=== PATIENT | male | born 1955 | race African-American/Black ===

== ENCOUNTER 2023-10-15 03:48 | Inpatient (IN) | payer OTHER ==
[2023-10-15] MEDS ORDERED: HYDROcodone/Acetaminophen 5/325 mg Tablet ONE (04:17)
[2023-10-15] MEDS ORDERED: Ketorolac Tromethamine 30 MG (1 mL) VIAL ONE (04:17)
[2023-10-15 04:35] LABS: #Basophils 0.02 10x3/uL (0.0-0.2); #Monocytes 1.45 10x3/uL (0.0-1.1); #Neutrophils 16.48 10x3/uL (1.5-8.4); %Basophils 0.1 % (0.0-2.0); %Monocytes 7.6 % (0.0-10.0); Hematocrit 26.7 % (38.8-50.0); Hemoglobin 8.4 g/dL (13.5-17.5); Mean Corpuscular HGB CONC 31.5 g/dL (32.0-36.0); Mean Corpuscular Hemoglobin 22.7 pg (27.0-33.0); Mean Corpuscular Volume 72.2 fL (81.2-95.1); Platelet Count 205 10x3/uL (150-450); RBC Distribution Width 16.6 % (11.5-14.5); White Blood Cell (WBC) Count 19.2 10x3/uL (3.5-10.5)
[2023-10-15 04:40] LABS: INR-International Normal Ratio 1.2; PTT 31.6 sec (22.0-33.0); Prothrombin Time 12.6 sec (9.5-12.1)
[2023-10-15 04:46] LABS: ALT (SGPT) 39 U/L (8-55); AST (SGOT) 71 U/L (5-34); Albumin 2.5 g/dL (3.4-4.8); Alkaline Phosphatase 112 U/L (40-110); Anion Gap 16 mmol/L (10-20); BUN (Urea Nitrogen) 24 mg/dL (8.4-25.7); Bilirubin, Total 0.8 mg/dL (0.2-1.2); Calc. Creatinine Clearance 0 mL/min (70-130); Calcium 8.5 mg/dL (7.8-10.44); Carbon Dioxide 21 mmol/L (23-31); Chloride 102 mmol/L (98-107); Estimated GFR 64; Glucose 122 mg/dL (80-115); Potassium 3.2 mmol/L (3.5-5.1); Protein, Total 6.5 g/dL (5.8-8.1); Sodium 136 mmol/L (136-145)
[2023-10-15] MEDS ORDERED: cefTRIAXone (ROCEPHIN) 1 GM VIAL ONE (04:59)
[2023-10-15 05:24] LABS: Hypochromia SLIGHT = 6-15 cells (100X) (0-5/hpf); Microcytosis SLIGHT = 6-15 cells (100X) (0-5/hpf)
[2023-10-15 05:25] LABS: Burr Cells SLIGHT = 2-5 cells (100X) (0-1/hpf); Platelet Adequacy Comment Appears Adequate
[2023-10-15] MEDS ORDERED: Dextrose 5% in Water 1,000 ML IV PRN (08:51)
[2023-10-15] MEDS ORDERED: Dextrose 50% Abboject 50 ML SYRINGE SLOW IVP PRN (08:51)
[2023-10-15] MEDS ORDERED: Glucagon 1 MG/ML KIT IM PRN (08:51)
[2023-10-15] MEDS ORDERED: Ondansetron PF 4 MG/2 ML Vial IVP PRN (08:56)
[2023-10-15] MEDS ORDERED: Senokot S 8.6-50 MG TAB PO PRN (08:56)
[2023-10-15] MEDS ORDERED: Calcium Carbonate 500 MG ChewTAB PO PRN (08:56)
[2023-10-15] MEDS ORDERED: Ondansetron ODT 4 MG TAB PO PRN (08:56)
[2023-10-15] MEDS ORDERED: Acetaminophen 650 MG Suppository PR PRN (08:56)
[2023-10-15] MEDS: Empagliflozin 10 MG TAB PO SCH (11:34)
[2023-10-15] MEDS: Clopidogrel Bisulfate 75 MG TAB PO SCH (11:34)
[2023-10-15 11:40] VITALS: BMI 27.2
[2023-10-15] MEDS: Famotidine 20 MG TAB PO SCH (11:53)
[2023-10-15] MEDS: VANCOMYCIN 2 GRAM/400 ML BAG 2 GM in Premix 1 BAG IVPB SCH (11:54)
[2023-10-15] MEDS: Potassium Chloride 20 MEQ TAB PO SCH (11:54)
[2023-10-15] MEDS ORDERED: Iopamidol 370 76% 100 ML VIAL ONE (13:07)
[2023-10-15] MEDS: Insulin Lispro 100 UNIT/ML 10 ML VIAL SC PRN (13:46)
[2023-10-15] MEDS: Atorvastatin Calcium 40 MG TAB PO SCH (22:35)
[2023-10-15] MEDS: Vancomycin 1 GM in Sodium Chloride 0.9% 250 ML 300 ML IVPB SCH (22:36)
[2023-10-15] MEDS: Rivaroxaban 15 MG TAB PO SCH (22:36)
[2023-10-15] MEDS: Terazosin HCl 5 MG CAP PO SCH (22:36)
[2023-10-15] MEDS: Lactulose 20 GM (30 mL) UDCUP PO SCH (22:37)
[2023-10-15] MEDS: Vancomycin 1 GM VIAL ONE (22:40)
[2023-10-15] MEDS: Venlafaxine HCl XR 75 MG CAP PO SCH (22:59)
[2023-10-16] MEDS: Morphine 2 MG/ML VIAL SLOW IVP PRN (02:14)
[2023-10-16] MEDS: Insulin Lispro 100 UNIT/ML 10 ML VIAL SC PRN (02:28)
[2023-10-16 04:22] LABS: MDiff Complete? YES
[2023-10-16 04:40] LABS: ALT (SGPT) 34 U/L (8-55); AST (SGOT) 43 U/L (5-34); Albumin 2.1 g/dL (3.4-4.8); Alkaline Phosphatase 132 U/L (40-110); Anion Gap 17 mmol/L (10-20); BUN (Urea Nitrogen) 29 mg/dL (8.4-25.7); Bilirubin, Total 0.5 mg/dL (0.2-1.2); Calc. Creatinine Clearance 74 mL/min (70-130); Calcium 8.6 mg/dL (7.8-10.44); Carbon Dioxide 20 mmol/L (23-31); Chloride 104 mmol/L (98-107); Estimated GFR 54; Globulin 4.2 g/dL (2.4-3.5); Glucose 242 mg/dL (80-115); Potassium 3.2 mmol/L (3.5-5.1); Protein, Total 6.3 g/dL (5.8-8.1); Sodium 138 mmol/L (136-145); Vancomycin, Random 21.2 ug/mL (See Comment)
[2023-10-16 04:41] LABS: Hematocrit 28.2 % (38.8-50.0); Hemoglobin 8.8 g/dL (13.5-17.5); Mean Corpuscular HGB CONC 31.2 g/dL (32.0-36.0); Mean Corpuscular Hemoglobin 22.9 pg (27.0-33.0); Mean Corpuscular Volume 73.2 fL (81.2-95.1); Mean Platelet Volume 11.2 fL (7.4-10.4); Platelet Count 263 10x3/uL (150-450); RBC Distribution Width 16.9 % (11.5-14.5); Red Blood Cell (RBC) Count 3.85 10x6/uL (4.32-5.72); White Blood Cell (WBC) Count 20.4 10x3/uL (3.5-10.5)
[2023-10-16 04:49] LABS: Band 7 % (5-11); Lymphocytes 5 % (21-51); Monocytes 4 % (0-10); Neutrophil 84 % (42-75)
[2023-10-16 04:59] LABS: Burr Cells SLIGHT = 2-5 cells (100X) (0-1/hpf); Microcytosis SLIGHT = 6-15 cells (100X) (0-5/hpf); Ovalocytes SLIGHT = 2-5 cells (100X) (0-1/hpf)
[2023-10-16 05:00] LABS: Platelet Adequacy Comment Appears Adequate
[2023-10-16] MEDS: Venlafaxine HCl XR 150 MG CAP PO SCH (08:14)
[2023-10-16] MEDS: cefTRIAXone\\ROCEPHIN 1 GM in Sodium Chloride 0.9% 100 ML IVPB SCH (08:44)
[2023-10-16] MEDS: Amlodipine 10 MG TAB PO SCH (08:47)
[2023-10-16] MEDS: Aspirin 81 mg Enteric Coated Tablet PO SCH (08:47)
[2023-10-16] MEDS: Clopidogrel Bisulfate 75 MG TAB PO SCH (08:47)
[2023-10-16] MEDS: Potassium Chloride 20 MEQ TAB PO SCH (08:52)
[2023-10-16] MEDS ORDERED: Vancomycin 1 GM in Sodium Chloride 0.9% 250 ML 250 ML IVPB SCH (09:00)
[2023-10-16] MEDS ORDERED: Lisinopril 5 MG TAB PO SCH (09:00)
[2023-10-16] MEDS: HYDROcodone/Acetaminophen 5/325 mg Tablet PO PRN (11:11)
[2023-10-16] MEDS: VANCOMYCIN 1.25 GM/250 ML BAG 1.25 GM in Premix 1 BAG IVPB SCH (11:12)
[2023-10-16] MEDS: Venlafaxine HCl XR 75 MG CAP PO SCH (21:31)
[2023-10-16] MEDS: Insulin NPH Human Isophane 100 UNITS/ML (10 ML VIAL) SC SCH (21:40)
[2023-10-17 03:59] LABS: #Basophils 0.05 10x3/uL (0.0-0.2); #Eosinphils 0.09 10x3/uL (0.0-0.5); #Monocytes 1.31 10x3/uL (0.0-1.1); #Neutrophils 18.42 10x3/uL (1.5-8.4); %Basophils 0.2 % (0.0-2.0); %Eosinophils 0.4 % (0.0-6.0); %Lymphocytes 6.4 % (18.0-47.0); %Neutrophils 84.9 % (40.0-75.0); Hematocrit 27.9 % (38.8-50.0); Hemoglobin 8.9 g/dL (13.5-17.5); Mean Corpuscular HGB CONC 31.9 g/dL (32.0-36.0); Mean Corpuscular Hemoglobin 23.1 pg (27.0-33.0); Mean Corpuscular Volume 72.5 fL (81.2-95.1); Mean Platelet Volume 10.3 fL (7.4-10.4); Platelet Count 308 10x3/uL (150-450); RBC Distribution Width 17.2 % (11.5-14.5); Red Blood Cell (RBC) Count 3.85 10x6/uL (4.32-5.72); White Blood Cell (WBC) Count 21.7 10x3/uL (3.5-10.5)
[2023-10-17 04:01] LABS: Vancomycin, Random 16.3 ug/mL (See Comment)
[2023-10-17 04:08] LABS: Anion Gap 13 mmol/L (10-20); BUN (Urea Nitrogen) 25 mg/dL (8.4-25.7); Calc. Creatinine Clearance 87 mL/min (70-130); Calcium 8.5 mg/dL (7.8-10.44); Carbon Dioxide 23 mmol/L (23-31); Chloride 104 mmol/L (98-107); Estimated GFR 65; Glucose 194 mg/dL (80-115); Potassium 3.3 mmol/L (3.5-5.1); Sodium 137 mmol/L (136-145)
[2023-10-17] MEDS ORDERED: Electrolyte Replacement Protocol 1 EACH FS SCH (08:15)
[2023-10-17] MEDS ORDERED: Iopamidol 370 76% 100 ML VIAL ONE (09:50)
[2023-10-17] MEDS: Cefepime 1 GM in Sodium Chloride 0.9% 100 ML IVPB SCH (10:40)
[2023-10-17] MEDS: Potassium Chloride 20 MEQ TAB PO SCH (10:41)
[2023-10-17] MEDS: Vancomycin 1.5 GRAM/300 ML BAG 1.5 GM in Premix 1 BAG IVPB SCH (11:29)
[2023-10-17 14:34] LABS: Potassium 3.9 mmol/L (3.5-5.1)
[2023-10-18 04:00] LABS: Hematocrit 27.8 % (38.8-50.0); Hemoglobin 8.9 g/dL (13.5-17.5); MDiff Complete? YES; Mean Corpuscular Volume 71.8 fL (81.2-95.1); Mean Platelet Volume 10.4 fL (7.4-10.4); Platelet Count 394 10x3/uL (150-450); RBC Distribution Width 17.3 % (11.5-14.5); Red Blood Cell (RBC) Count 3.87 10x6/uL (4.32-5.72); White Blood Cell (WBC) Count 25.3 10x3/uL (3.5-10.5)
[2023-10-18 04:23] LABS: Anion Gap 16 mmol/L (10-20); BUN (Urea Nitrogen) 24 mg/dL (8.4-25.7); Calc. Creatinine Clearance 86 mL/min (70-130); Calcium 8.4 mg/dL (7.8-10.44); Carbon Dioxide 21 mmol/L (23-31); Chloride 106 mmol/L (98-107); Estimated GFR 64; Glucose 203 mg/dL (80-115); Magnesium 2.5 mg/dL (1.6-2.6); Potassium 4.5 mmol/L (3.5-5.1); Sodium 138 mmol/L (136-145)
[2023-10-18 04:55] LABS: Band 4 % (5-11); Eosinophils 1 % (0-10); Lymphocytes 3 % (21-51); Monocytes 3 % (0-10); Neutrophil 89 % (42-75)
[2023-10-18 04:59] LABS: Microcytosis SLIGHT = 6-15 cells (100X) (0-5/hpf); Ovalocytes SLIGHT = 2-5 cells (100X) (0-1/hpf); Platelet Adequacy Comment Appears Adequate
[2023-10-18] MEDS: VANCOMYCIN 1.25 GM/250 ML BAG 1.25 GM in Premix 1 BAG IVPB SCH (07:37)
[2023-10-18] MEDS: Insulin NPH Human Isophane 100 UNITS/ML (10 ML VIAL) SC SCH (09:25)
[2023-10-19] MEDS: Acetaminophen 325 MG TAB PO PRN (04:09)
[2023-10-19 04:26] LABS: Vancomycin, Random 38.3 ug/mL (See Comment)
[2023-10-19 04:27] LABS: Anion Gap 14 mmol/L (10-20); BUN (Urea Nitrogen) 20 mg/dL (8.4-25.7); Calc. Creatinine Clearance 92 mL/min (70-130); Carbon Dioxide 22 mmol/L (23-31); Chloride 107 mmol/L (98-107); Estimated GFR 69; Glucose 170 mg/dL (80-115); Potassium 3.7 mmol/L (3.5-5.1); Sodium 139 mmol/L (136-145)
[2023-10-19 05:03] LABS: Hematocrit 26.6 % (38.8-50.0); Hemoglobin 8.4 g/dL (13.5-17.5); Mean Corpuscular HGB CONC 31.6 g/dL (32.0-36.0); Mean Corpuscular Hemoglobin 22.8 pg (27.0-33.0); Mean Corpuscular Volume 72.3 fL (81.2-95.1); Mean Platelet Volume 9.7 fL (7.4-10.4); Platelet Count 445 10x3/uL (150-450); RBC Distribution Width 17.2 % (11.5-14.5); Red Blood Cell (RBC) Count 3.68 10x6/uL (4.32-5.72); White Blood Cell (WBC) Count 26.4 10x3/uL (3.5-10.5)
[2023-10-19 05:04] LABS: MDiff Complete? YES
[2023-10-19 05:45] LABS: Band 5 % (5-11); Eosinophils 1 % (0-10); Lymphocytes 5 % (21-51); Monocytes 4 % (0-10); Neutrophil 85 % (42-75)
[2023-10-19 05:49] LABS: Hypochromia SLIGHT = 6-15 cells (100X) (0-5/hpf); Microcytosis SLIGHT = 6-15 cells (100X) (0-5/hpf); Ovalocytes SLIGHT = 2-5 cells (100X) (0-1/hpf)
[2023-10-19 05:50] LABS: Platelet Adequacy Comment Appears Adequate
[2023-10-19 11:23] VITALS: BMI 27.2
[2023-10-19 13:47] LABS: Hemoglobin A1c 10.5 % (4.0-6.0)
[2023-10-19] MEDS: Clindamycin/D5W 900 MG in Premix 1 BAG IVPB SCH (17:23)
[2023-10-20 04:13] LABS: Anion Gap 13 mmol/L (10-20); BUN (Urea Nitrogen) 22 mg/dL (8.4-25.7); Calc. Creatinine Clearance 105 mL/min (70-130); Carbon Dioxide 20 mmol/L (23-31); Chloride 107 mmol/L (98-107); Estimated GFR 81; Glucose 172 mg/dL (80-115); Potassium 3.8 mmol/L (3.5-5.1); Sodium 136 mmol/L (136-145)
[2023-10-20 04:46] LABS: #Basophils 0.05 10x3/uL (0.0-0.2); #Eosinphils 0.16 10x3/uL (0.0-0.5); #Monocytes 1.13 10x3/uL (0.0-1.1); #Neutrophils 20.74 10x3/uL (1.5-8.4); %Basophils 0.2 % (0.0-2.0); %Eosinophils 0.7 % (0.0-6.0); %Lymphocytes 4.7 % (18.0-47.0); %Monocytes 4.8 % (0.0-10.0); %Neutrophils 87.2 % (40.0-75.0); Hematocrit 26.6 % (38.8-50.0); Hemoglobin 8.5 g/dL (13.5-17.5); Mean Corpuscular Hemoglobin 22.9 pg (27.0-33.0); Mean Corpuscular Volume 71.7 fL (81.2-95.1); Mean Platelet Volume 9.6 fL (7.4-10.4); Platelet Count 441 10x3/uL (150-450); RBC Distribution Width 17.2 % (11.5-14.5); Red Blood Cell (RBC) Count 3.71 10x6/uL (4.32-5.72); White Blood Cell (WBC) Count 23.8 10x3/uL (3.5-10.5)
[2023-10-20] MEDS: Saccharomyces boulardii 250 MG CAP PO SCH (08:36)
[2023-10-21 04:44] LABS: #Basophils 0.03 10x3/uL (0.0-0.2); #Eosinphils 0.15 10x3/uL (0.0-0.5); #Monocytes 0.99 10x3/uL (0.0-1.1); #Neutrophils 17.05 10x3/uL (1.5-8.4); %Basophils 0.2 % (0.0-2.0); %Eosinophils 0.8 % (0.0-6.0); %Lymphocytes 5.9 % (18.0-47.0); %Neutrophils 85.8 % (40.0-75.0); Hemoglobin 7.8 g/dL (13.5-17.5); Mean Corpuscular HGB CONC 31.2 g/dL (32.0-36.0); Mean Corpuscular Hemoglobin 22.5 pg (27.0-33.0); Mean Corpuscular Volume 72.3 fL (81.2-95.1); Mean Platelet Volume 9.1 fL (7.4-10.4); Platelet Count 424 10x3/uL (150-450); RBC Distribution Width 17.4 % (11.5-14.5); Red Blood Cell (RBC) Count 3.46 10x6/uL (4.32-5.72); White Blood Cell (WBC) Count 19.9 10x3/uL (3.5-10.5)
[2023-10-21 04:54] LABS: Anion Gap 11 mmol/L (10-20); BUN (Urea Nitrogen) 18 mg/dL (8.4-25.7); Calc. Creatinine Clearance 106 mL/min (70-130); Calcium 7.9 mg/dL (7.8-10.44); Carbon Dioxide 21 mmol/L (23-31); Chloride 109 mmol/L (98-107); Estimated GFR 82; Glucose 146 mg/dL (80-115); Potassium 3.7 mmol/L (3.5-5.1); Sodium 137 mmol/L (136-145)
[2023-10-21] MEDS: Insulin NPH Human Isophane 100 UNITS/ML (10 ML VIAL) SC SCH (09:12)
[2023-10-22 03:36] LABS: #Basophils 0.03 10x3/uL (0.0-0.2); #Eosinphils 0.15 10x3/uL (0.0-0.5); #Neutrophils 15.41 10x3/uL (1.5-8.4); %Basophils 0.2 % (0.0-2.0); %Eosinophils 0.8 % (0.0-6.0); %Lymphocytes 6.3 % (18.0-47.0); %Monocytes 6.6 % (0.0-10.0); %Neutrophils 84.5 % (40.0-75.0); Hematocrit 24.6 % (38.8-50.0); Hemoglobin 7.7 g/dL (13.5-17.5); Mean Corpuscular HGB CONC 31.3 g/dL (32.0-36.0); Mean Corpuscular Hemoglobin 22.8 pg (27.0-33.0); Mean Corpuscular Volume 72.8 fL (81.2-95.1); Mean Platelet Volume 9.4 fL (7.4-10.4); Platelet Count 426 10x3/uL (150-450); RBC Distribution Width 17.9 % (11.5-14.5); Red Blood Cell (RBC) Count 3.38 10x6/uL (4.32-5.72); White Blood Cell (WBC) Count 18.2 10x3/uL (3.5-10.5)
[2023-10-22 03:52] LABS: Anion Gap 11 mmol/L (10-20); BUN (Urea Nitrogen) 21 mg/dL (8.4-25.7); Calc. Creatinine Clearance 97 mL/min (70-130); Calcium 7.6 mg/dL (7.8-10.44); Carbon Dioxide 21 mmol/L (23-31); Chloride 107 mmol/L (98-107); Estimated GFR 73; Glucose 209 mg/dL (80-115); Potassium 3.9 mmol/L (3.5-5.1); Sodium 135 mmol/L (136-145)
[2023-10-22 06:20] LABS: Vancomycin, Random 34.8 ug/mL (See Comment)
[2023-10-23] MEDS: cefTRIAXone\\ROCEPHIN 2 GM in Sodium Chloride 0.9% 100 ML IVPB SCH (12:37)
[2023-10-24 04:00] LABS: #Basophils 0.04 10x3/uL (0.0-0.2); #Eosinphils 0.26 10x3/uL (0.0-0.5); #Monocytes 0.91 10x3/uL (0.0-1.1); #Neutrophils 12.21 10x3/uL (1.5-8.4); %Basophils 0.3 % (0.0-2.0); %Eosinophils 1.7 % (0.0-6.0); %Lymphocytes 9.2 % (18.0-47.0); %Monocytes 6.1 % (0.0-10.0); Hemoglobin 7.5 g/dL (13.5-17.5); Mean Corpuscular HGB CONC 31.3 g/dL (32.0-36.0); Mean Corpuscular Hemoglobin 22.9 pg (27.0-33.0); Mean Corpuscular Volume 73.4 fL (81.2-95.1); Mean Platelet Volume 9.4 fL (7.4-10.4); Platelet Count 453 10x3/uL (150-450); RBC Distribution Width 18.6 % (11.5-14.5); Red Blood Cell (RBC) Count 3.27 10x6/uL (4.32-5.72); White Blood Cell (WBC) Count 14.9 10x3/uL (3.5-10.5)
[2023-10-24 04:13] LABS: Anion Gap 12 mmol/L (10-20); BUN (Urea Nitrogen) 17 mg/dL (8.4-25.7); Calc. Creatinine Clearance 97 mL/min (70-130); Calcium 7.9 mg/dL (7.8-10.44); Carbon Dioxide 19 mmol/L (23-31); Chloride 109 mmol/L (98-107); Estimated GFR 73; Glucose 197 mg/dL (80-115); Potassium 4.1 mmol/L (3.5-5.1); Sodium 136 mmol/L (136-145)
[2023-10-24 04:14] LABS: Vancomycin, Random 21.4 ug/mL (See Comment)
[2023-10-24] MEDS: Insulin NPH Human Isophane 100 UNITS/ML (10 ML VIAL) SC SCH (20:24)
[2023-10-25 03:58] LABS: #Basophils 0.03 10x3/uL (0.0-0.2); #Eosinphils 0.25 10x3/uL (0.0-0.5); #Monocytes 0.89 10x3/uL (0.0-1.1); #Neutrophils 11.99 10x3/uL (1.5-8.4); %Basophils 0.2 % (0.0-2.0); %Eosinophils 1.7 % (0.0-6.0); %Lymphocytes 10.2 % (18.0-47.0); %Neutrophils 81.2 % (40.0-75.0); Hematocrit 24.2 % (38.8-50.0); Hemoglobin 7.6 g/dL (13.5-17.5); Mean Corpuscular HGB CONC 31.4 g/dL (32.0-36.0); Mean Corpuscular Hemoglobin 23.3 pg (27.0-33.0); Mean Corpuscular Volume 74.2 fL (81.2-95.1); Mean Platelet Volume 9.4 fL (7.4-10.4); Platelet Count 465 10x3/uL (150-450); RBC Distribution Width 18.6 % (11.5-14.5); Red Blood Cell (RBC) Count 3.26 10x6/uL (4.32-5.72); White Blood Cell (WBC) Count 14.8 10x3/uL (3.5-10.5)
[2023-10-26 05:09] LABS: #Basophils 0.06 10x3/uL (0.0-0.2); #Eosinphils 0.24 10x3/uL (0.0-0.5); #Monocytes 0.89 10x3/uL (0.0-1.1); #Neutrophils 10.31 10x3/uL (1.5-8.4); %Basophils 0.5 % (0.0-2.0); %Eosinophils 1.9 % (0.0-6.0); %Monocytes 6.9 % (0.0-10.0); %Neutrophils 80.1 % (40.0-75.0); Hemoglobin 7.7 g/dL (13.5-17.5); Mean Corpuscular HGB CONC 30.8 g/dL (32.0-36.0); Mean Corpuscular Hemoglobin 22.7 pg (27.0-33.0); Mean Corpuscular Volume 73.7 fL (81.2-95.1); Mean Platelet Volume 9.4 fL (7.4-10.4); Platelet Count 499 10x3/uL (150-450); RBC Distribution Width 18.7 % (11.5-14.5); Red Blood Cell (RBC) Count 3.39 10x6/uL (4.32-5.72); White Blood Cell (WBC) Count 12.9 10x3/uL (3.5-10.5)
[2023-10-26 05:18] LABS: Anion Gap 10 mmol/L (10-20); BUN (Urea Nitrogen) 17 mg/dL (8.4-25.7); Calc. Creatinine Clearance 89 mL/min (70-130); Carbon Dioxide 20 mmol/L (23-31); Chloride 110 mmol/L (98-107); Estimated GFR 67; Glucose 174 mg/dL (80-115); Potassium 4.3 mmol/L (3.5-5.1); Sodium 136 mmol/L (136-145)
[2023-10-26] MEDS: VANCOMYCIN 1.25 GM/250 ML BAG 1.25 GM in Premix 1 BAG IVPB SCH (21:39)
[2023-10-27 05:22] LABS: #Basophils 0.05 10x3/uL (0.0-0.2); #Eosinphils 0.18 10x3/uL (0.0-0.5); %Basophils 0.5 % (0.0-2.0); %Eosinophils 1.7 % (0.0-6.0); %Lymphocytes 12.8 % (18.0-47.0); %Monocytes 8.3 % (0.0-10.0); %Neutrophils 76.3 % (40.0-75.0); Hematocrit 24.3 % (38.8-50.0); Hemoglobin 7.5 g/dL (13.5-17.5); Mean Corpuscular HGB CONC 30.9 g/dL (32.0-36.0); Mean Corpuscular Hemoglobin 22.9 pg (27.0-33.0); Mean Corpuscular Volume 74.1 fL (81.2-95.1); Mean Platelet Volume 9.2 fL (7.4-10.4); Platelet Count 533 10x3/uL (150-450); RBC Distribution Width 18.5 % (11.5-14.5); Red Blood Cell (RBC) Count 3.28 10x6/uL (4.32-5.72); White Blood Cell (WBC) Count 10.9 10x3/uL (3.5-10.5)
[2023-10-27 05:23] LABS: Vancomycin, Random 24.9 ug/mL (See Comment)
[2023-10-27 05:24] LABS: Anion Gap 12 mmol/L (10-20); BUN (Urea Nitrogen) 16 mg/dL (8.4-25.7); Calc. Creatinine Clearance 106 mL/min (70-130); Calcium 8.3 mg/dL (7.8-10.44); Carbon Dioxide 20 mmol/L (23-31); Chloride 109 mmol/L (98-107); Estimated GFR 82; Glucose 156 mg/dL (80-115); Sodium 137 mmol/L (136-145)
[2023-10-27 06:12] LABS: Anisocytosis SLIGHT = 6-15 cells (100X) (0-5/hpf); Hypochromia SLIGHT = 6-15 cells (100X) (0-5/hpf); Microcytosis SLIGHT = 6-15 cells (100X) (0-5/hpf); Ovalocytes SLIGHT = 2-5 cells (100X) (0-1/hpf); Platelet Adequacy Comment Appears Increased; Polychromasia MODERATE = 3-4 cells (100X) (0-2/hpf)
[2023-10-27] MEDS: Vancomycin 1.5 GRAM/300 ML BAG 1.5 GM in Premix 1 BAG IVPB SCH (20:15)
[2023-10-28 05:06] LABS: #Basophils 0.07 10x3/uL (0.0-0.2); #Eosinphils 0.25 10x3/uL (0.0-0.5); #Monocytes 0.74 10x3/uL (0.0-1.1); #Neutrophils 7.18 10x3/uL (1.5-8.4); %Basophils 0.7 % (0.0-2.0); %Eosinophils 2.6 % (0.0-6.0); %Monocytes 7.7 % (0.0-10.0); %Neutrophils 74.6 % (40.0-75.0); Hematocrit 26.3 % (38.8-50.0); Hemoglobin 7.9 g/dL (13.5-17.5); Mean Corpuscular Hemoglobin 22.4 pg (27.0-33.0); Mean Corpuscular Volume 74.5 fL (81.2-95.1); Platelet Count 554 10x3/uL (150-450); RBC Distribution Width 18.4 % (11.5-14.5); Red Blood Cell (RBC) Count 3.53 10x6/uL (4.32-5.72); White Blood Cell (WBC) Count 9.6 10x3/uL (3.5-10.5)
[2023-10-28 05:17] LABS: Anion Gap 12 mmol/L (10-20); BUN (Urea Nitrogen) 15 mg/dL (8.4-25.7); Calc. Creatinine Clearance 107 mL/min (70-130); Calcium 8.3 mg/dL (7.8-10.44); Carbon Dioxide 20 mmol/L (23-31); Chloride 107 mmol/L (98-107); Estimated GFR 83; Glucose 130 mg/dL (80-115); Potassium 3.9 mmol/L (3.5-5.1); Sodium 135 mmol/L (136-145)
[2023-10-28 08:54] VITALS: BP 140/70; TEMP 97.5
== END 2023-10-28 11:55 | disposition home or self-care (01) | DRG 872 ==
LOC: CSHERS 03:48 → EEVIPCON 07:17 → CSHERHOLD 07:17 → CSHTELE 10:01
PROVIDERS: ADMIT Family Medicine; ATTEND Family Medicine
DX: A41.02 Sepsis due to Methicillin resistant Staphylococcus aureus (principal); L03.116 Cellulitis of left lower limb; N17.9 Acute kidney failure, unspecified; I25.10 Atherosclerotic heart disease of native coronary artery without angina pectoris; E11.51 Type 2 diabetes mellitus with diabetic peripheral angiopathy without gangrene; E87.6 Hypokalemia; K21.9 Gastro-esophageal reflux disease without esophagitis; G47.33 Obstructive sleep apnea (adult) (pediatric); K40.90 Unilateral inguinal hernia, without obstruction or gangrene, not specified as recurrent; D50.9 Iron deficiency anemia, unspecified; Z96.651 Presence of right artificial knee joint; Z91.013 Allergy to seafood; Z91.010 Allergy to peanuts; Z79.4 Long term (current) use of insulin; Z79.899 Other long term (current) drug therapy; Z79.82 Long term (current) use of aspirin; Z98.890 Other specified postprocedural states; Z89.422 Acquired absence of other left toe(s); Z90.49 Acquired absence of other specified parts of digestive tract; Z87.891 Personal history of nicotine dependence
CPT/HCPCS: 36415; 36416; 80048; 80053; 80202; 82274; 82728; 83036; 83540; 83605; 83735; 83880; 85025; 85046; 85610; 85730; 86140; 87040; 87070; 87077; 87081; 87205; 93005; 93010; 93923; 94760; 96374; 96375; 97139; J0692; J0696; J1815; J1885; J2272; J3370; J3490; J7050; Q9967